=== PATIENT | female | born 1965 | race Caucasian/White ===

== ENCOUNTER 2019-11-08 17:47 | Emergency (ER) | payer SELFPAY ==
[~2019-11-08] VITALS: Ht 154.9 cm; Wt 68.5 kg
[2019-11-08] MEDS ORDERED: CLINDAMYCIN PHOS 600 MG/ 4 ML VIAL IM ONE (18:15)
[2019-11-08] MEDS ORDERED: CLINDAMYCIN PHOS 600 MG/ 4 ML VIAL ONE (18:23)
--- OUTSIDE RECORDS SUMMARY | 2019-11-09 14:08 | XMS REPORT ---
[facility] Unknown Phone Unavailable Care Team Providers Care [place] Attorney Name Role Phone Unavailable Unavailable Problems This patient has no known problems. Allergies, Adverse Reactions, Alerts This patient has no known allergies or adverse reactions. Medications This patient has no known medications. Encounters Start Date/Time End Date/Time Encounter Type Admission Type Attending [facility] Care Department Encounter ID 2019-10-02 00:00:00 2019-10-02 00:00:00 Outpatient [facility] [id number] 2019-08-16 09:38:29 2019-08-16 09:38:29 Outpatient [facility] [id number] 2019-08-16 00:00:00 2019-08-16 00:00:00 Outpatient [facility] [id number] 2019-08-06 13:00:21 2019-08-06 13:00:21 Outpatient [facility] [id number] 2019-07-26 06:55:31 2019-07-26 06:55:31 Outpatient [facility] [id number] 2019-07-26 06:44:27 2019-07-26 06:44:27 Outpatient [facility] [id number] 2019-07-19 15:13:07 2019-07-19 15:13:07 Outpatient [facility] [id number] 2019-07-12 08:02:33 2019-07-12 08:02:33 Outpatient [facility] [id number] 2019-07-12 00:00:00 2019-07-12 00:00:00 Outpatient [facility] [id number] 2019-07-10 09:19:53 2019-07-10 09:19:53 Outpatient [facility] [id number] 2019-07-05 15:59:16 2019-07-05 15:59:16 Outpatient [facility] [id number] 2019-07-05 14:28:52 2019-07-05 14:28:52 Outpatient [facility] [id number] 2019-07-05 00:00:00 2019-07-05 00:00:00 Outpatient [facility] [id number] 2019-06-28 00:00:00 2019-06-28 00:00:00 Outpatient [facility] [id number] 2019-06-05 13:09:51 2019-06-05 13:09:51 Outpatient [facility] [id number] 2019-06-05 00:00:00 2019-06-05 00:00:00 Outpatient [facility] [id number] 2019-05-18 09:09:47 2019-05-18 09:09:47 Outpatient [facility] [id number] 2019-03-26 08:37:21 2019-03-26 08:37:21 Outpatient [facility] [id number] 2019-03-26 08:05:07 2019-03-26 08:05:07 Outpatient [facility] [id number] 2019-03-21 08:34:14 2019-03-21 08:34:14 Outpatient [facility] [id number] 2019-03-09 10:34:38 2019-03-09 10:34:38 Outpatient [facility] [id number] 2019-01-10 00:00:00 2019-01-10 00:00:00 Outpatient [facility] [id number] 2018-12-15 00:00:00 2018-12-15 00:00:00 Outpatient [facility] [id number] 2018-10-17 11:31:10 2018-10-17 11:31:10 Outpatient [facility] [id number] 2018-10-17 10:40:21 2018-10-17 10:40:21 Outpatient [facility] [id number] 2018-09-07 00:00:00 2018-09-07 00:00:00 Outpatient [facility] [id number] 2018-07-31 00:00:00 2018-07-31 00:00:00 Outpatient [facility] [id number] 2018-07-28 00:00:00 2018-07-28 00:00:00 Outpatient [facility] [id number] 2018-07-28 00:00:00 2018-07-28 00:00:00 Outpatient [facility] [id number] 2018-07-27 09:36:28 2018-07-27 09:36:28 Outpatient [facility] [id number] 2018-07-27 09:08:49 2018-07-27 09:08:49 Outpatient [facility] [id number] 2018-07-27 00:00:00 2018-07-27 00:00:00 Outpatient [facility] [id number] 2018-05-25 13:35:02 2018-05-25 13:35:02 Outpatient [facility] [id number] 2018-05-23 00:00:00 2018-05-23 00:00:00 Outpatient [facility] [id number] 2018-03-21 15:38:32 2018-03-21 15:38:32 Outpatient [facility] [id number] 2018-03-03 00:00:00 2018-03-03 00:00:00 Outpatient [facility] [id number] 2018-02-24 11:13:16 2018-02-24 11:13:16 Outpatient [facility] [id number] 2018-02-22 15:46:20 2018-02-22 15:46:20 Outpatient [facility] [id number] 2018-02-02 13:47:06 2018-02-02 13:47:06 Outpatient [facility] [id number] 2018-01-26 16:22:02 2018-01-26 16:22:02 Outpatient [facility] [id number] 2018-01-23 14:26:34 2018-01-23 14:26:34 Outpatient [facility] [id number] 2018-01-16 15:25:37 2018-01-16 15:25:37 Outpatient [facility] [id number] 2017-12-23 12:37:49 2017-12-23 12:37:49 Outpatient [facility] [id number] 2017-09-26 10:45:53 2017-09-26 10:45:53 Outpatient [facility] [id number] 2017-09-20 13:39:31 2017-09-20 13:39:31 Outpatient [facility] [id number] 2017-09-19 15:16:10 2017-09-19 15:16:10 Outpatient [facility] [id number] 2017-09-19 14:41:04 2017-09-19 14:41:04 Outpatient [facility] [id number] 2017-09-12 00:00:00 2017-09-12 00:00:00 Outpatient [facility] [id number] 2017-07-08 08:12:19 2017-07-08 08:12:19 Outpatient [facility] [id number] 2017-06-23 00:00:00 2017-06-23 00:00:00 Outpatient [facility] [id number] 2017-06-21 00:00:00 2017-06-21 00:00:00 Outpatient [facility] [id number] 2017-05-06 10:56:52 2017-05-06 10:56:52 Outpatient [facility] [id number] 2017-05-06 09:37:41 2017-05-06 09:37:41 Outpatient [facility] [id number] 2017-04-11 10:47:56 2017-04-11 10:47:56 Outpatient [facility] [id number] 2017-04-08 08:56:29 2017-04-08 08:56:29 Outpatient [facility] [id number]
== END 2019-11-08 18:43 | disposition home or self-care (01) ==
LOC: FSED 17:47
DX: J01.00 Acute maxillary sinusitis, unspecified (principal); J30.2 Other seasonal allergic rhinitis; I10 Essential (primary) hypertension; E11.9 Type 2 diabetes mellitus without complications
CPT/HCPCS: 99283